=== PATIENT | male | born 1955 | race Caucasian/White ===

== ENCOUNTER 2020-10-02 06:25 | Day surgery (SDC) | payer BC ==
[~2020-10-02] VITALS: Ht 182.9 cm; Wt 109.8 kg
[2020-10-02] MEDS ORDERED: OMEPRAZOLE20 M1 PO (06:49)
--- NOTE | 2020-10-02 08:19 | NUR ---
10/02/20 0819 Joyce Dailey 0816- PT ARRIVES TO PACU AWAKE AND TALKING. PT REPORTS NO PAIN OR NAUSEA. RESP EVEN AND UNLABORED. OXYGEN SAT MID TO HIGH 90'S ON 2L VIA NC.
--- NOTE | 2020-10-03 14:34 | OR ---
[facility] [address] [place], [place] [address] Signed DATE OF OPERATION: 10/02/2020 SURGEON: Osiris Brown MD PREOPERATIVE DIAGNOSIS: History of tubular adenoma 2013. POSTOPERATIVE DIAGNOSIS: Normal colon to cecum except for internal hemorrhoids. PROCEDURE: Total colonoscopy to cecum. ANESTHESIA: Intravenous sedation, fentanyl 150 mcg and Versed 5 mg. INDICATION: This 65-year-old white man is a patient of RICHARD Guillen. He is known to me from the past having undergone colonoscopy in 2013 showing a tubular adenoma. He is symptom free currently. He is here for surveillance colonoscopy, understand the risk of bleeding, infection, perforation, and so on. Understanding these risks, he wished to proceed. FINDINGS: The prep was quite good. Complete colonoscopy was undertaken to the cecum with good visualization of the ileocecal valve and appendiceal orifice. There was no evidence of polyps or other abnormality other than internal hemorrhoidal changes. DESCRIPTION OF PROCEDURE: The patient was brought to the endoscopy suite and placed in lateral decubitus position, given intravenous sedation to the point of slurred speech and nystagmus. Digital rectal examination was normal. An Olympus video colonoscope was passed in the rectum and manipulated throughout the colon ultimately intubating the cecum itself. The ileocecal valve and appendiceal orifice were normal. The scope was then withdrawn and examination throughout showed no sign of abnormality, specifically no polyps, diverticular formation, colitis, or cancer. Retroflexed view of the rectum showed internal hemorrhoidal changes but no sign of acute problem otherwise. The patient was taken to the recovery room in good condition having suffered no complication. Electronically Signed By: OSIRIS BROWN MD 10/03/20 1434 PATIENT NAME: MIA FRENCH OPERATIVE REPORT DATE OF : 59 REPORT #: [id number] PHYSICIAN: OSIRIS BROWN MD PCP: RACHAEL PADILLA PAC REPORT IS CONFIDENTIAL AND NOT TO BE RELEASED WITHOUT AUTHORIZATION [facility] [address] [place], [place] [address] Signed CONCLUDING DIAGNOSIS: Normal colon to cecum except for internal hemorrhoids, asymptomatic. PLAN: Recommend repeat colonoscopy in 5 to 10 years based on personal history of polyp. MD KHANH Cervantes/MODL /[id number] cc: RICHARD Guillen Copies: ~ Electronically Signed By: OSIRIS BROWN MD 10/03/20 1434 PATIENT NAME: MIA FRENCH J OPERATIVE REPORT DATE OF : 59 REPORT #: [id number] PHYSICIAN: OSIRIS BROWN MD PCP: RACHAEL PADILLA PAC REPORT IS CONFIDENTIAL AND NOT TO BE RELEASED WITHOUT AUTHORIZATION
== END 2020-10-02 09:06 | disposition home or self-care (01) ==
LOC: DS 06:25 → OPS 06:25 → DS 06:45 → OPS 08:30
PROVIDERS: ATTEND Surgery
PROC: 0DJD8ZZ Inspection of Lower Intestinal Tract, Via Natural or Artificial Opening Endoscopic (ICD-10-PCS; principal; 2020-10-02 06:45)
DX: Z09 Encounter for follow-up examination after completed treatment for conditions other than malignant neoplasm (principal); K64.8 Other hemorrhoids; K21.9 Gastro-esophageal reflux disease without esophagitis; Z86.010 Personal history of colon polyps; Z90.49 Acquired absence of other specified parts of digestive tract
CPT/HCPCS: 99153; G0500; J2250; J3010; J7121